=== PATIENT | female | born 1975 | race Caucasian/White ===

== ENCOUNTER 2021-11-28 20:12 | Emergency (ER) | payer OTHER ==
[~2021-11-28] VITALS: Ht 167.6 cm; Wt 99.3 kg
[2021-11-28 20:24] VITALS: BP 146/86
[2021-11-28] MEDS ORDERED: HYDROcodone/APAP 5/325MG 1 TAB TABLET PO ONE (20:45)
--- NOTE | 2021-11-28 20:59 | PHYS DOC ---
Past History Additional Past Medical Histor: interstitual cystitis, osteo arthritis (ROMEO YEAGER APRN) Past Surgical History: Appendectomy, Other Additional Past Surgical Histo: left ovary, sinus sx, turbinate (ROMEO YEAGER APRN) Alcohol Use: Occasionally (ROMEO YEAGER APRN) General Adult EDM: Chief Complaint: MECHANICAL FALL HPI: HPI: Patient is a 45-year-old female presents after a fall. Patient is reporting left knee pain and left wrist pain. Patient states that she did hit the left side of her head. Denies loss of consciousness, denies being on blood thinners. states that she has been acting appropriately all afternoon. Denies vomiting. Patient is unable to flex or extend wrist due to pain. Radial pulses are intact. Denies medical history. (ROMEO YEAGER APRN) Review of Systems: Review of Systems: ROS At least 10 ROS systems have been reviewed and are negative except as documented in the HPI. General: Negative except as outlined in HPI above. Skin: Negative except as outlined in HPI above. HEENT: Negative except as outlined in HPI above. Neck: Negative except as outlined in HPI above. Respiratory: Negative except as outlined in HPI above.. Cardiovascular: Negative except as outlined in HPI above. Abdomen: Negative except as outlined in HPI above. : Negative except as outlined in HPI above. Back/MSK: Negative except as outlined in HPI above. Neuro: Negative except as outlined in HPI above. Psych: Negative except as outlined in HPI above. (ROMEO YEAGER APRN) Current Medications: Current Meds: Current Medications Medications (Trade) Dose Ordered Sig/Derick Start Time Stop Time Status Last Admin Dose Admin Acetaminophen/ Hydrocodone Bitart (Lortab 5/325) 1 tab 1X ONCE 11/28/21 20:45 11/28/21 20:47 DC 11/28/21 20:52 1 TAB (ROMEO YEAGER APRN) Allergies: Allergies: Allergies Coded Allergies Type Severity Reaction Last Updated Verified Sulfa (Sulfonamide Antibiotics) Allergy Intermediate 11/28/21 Yes (ROMEO YEAGER APRN) Physical Exam: PE: Constitutional: Well developed, well nourished, no acute distress, non-toxic appearance. [] HENT: Normocephalic, atraumatic, bilateral external ears normal, oropharynx moist, no oral exudates, nose normal. [] Eyes: PERRLA, EOMI, conjunctiva normal, no discharge. [] Neck: Normal range of motion, no tenderness, supple, no stridor. [] Cardiovascular:Heart rate regular rhythm, no murmur [] Lungs & Thorax: Bilateral breath sounds clear to auscultation [] Abdomen: Bowel sounds normal, soft, no tenderness, no masses, no pulsatile masses. [] Skin: Warm, dry, no erythema, no rash. [] Back: No tenderness, no CVA tenderness. [] Extremities: Left wrist tenderness, unable to flex or extend wrist, mild swelling noted, radial pulses intact Neurologic: Alert and oriented X 3, normal motor function, normal sensory function, no focal deficits noted. [] Psychologic: Affect normal, judgement normal, mood normal. [] (ROMEO YEAGER APRN) Current Patient Data: Vital Signs: Vital Signs Date Time Temp Pulse Resp B/P (MAP) Pulse Ox O2 Delivery O2 Flow Rate FiO2 11/28/21 20:52 18 11/28/21 20:24 98.5 87 146/86 (106) 96 Room Air (ROMEO YEAGER APRN) EKG: EKG: [] (ROMEO YEAGER APRN) Radiology/Procedures: Radiology/Procedures: []Exam: Left wrist 3 views INDICATION: Fall TECHNIQUE: Frontal, lateral and oblique views the left wrist Comparisons: None FINDINGS: Bone mineralization is normal. No acute or healed fractures. Soft tissues are unremarkable. Joint spaces are well-maintained IMPRESSION: No acute osseous abnormality. Electronically signed by: Steven Gerber MD (11/28/2021 9:29 PM) [facility] (ORMEO YEAGER APRN) Heart Score: C/O Chest Pain: No Risk Factors: Risk Factors: DM, Current or recent (<one month) smoker, HTN, HLP, family history of CAD, obesity. Risk Scores: Score 0 - 3: 2.5% MACE over next 6 weeks - Discharge Home Score 4 - 6: 20.3% MACE over next 6 weeks - Admit for Clinical Observation Score 7 - 10: 72.7% MACE over next 6 weeks - Early Invasive Strategies (ROMEO YEAGER APRN) Course & Med Decision Making: Course & Med Decision Making Pertinent Labs and Imaging studies reviewed. (See chart for details) [] 45-year-old female presents after a fall. Patient is reporting left knee and left wrist pain. Work-up in ER consist of left wrist x-ray, left knee x-ray. Patient is unable to flex or extend the wrist due increase in pain. Patient is also reporting pain in the anatomic snuffbox and concerning for scaphoid fracture. Radial pulses are intact. Pain treated while in the emergency room. Wrist x-ray was unremarkable. Due to pain in the anatomic snuffbox and going to still place a thumb spica splint and have patient follow-up with Ortho. Advised patient to take ibuprofen and Tylenol at home. Sending patient home with a starter pack for pain medication and prescription for medication at home until she can follow-up. Patient given follow-up contact information for orthopedics. Patient verbalizes understanding of discharge instructions. Discussed return precautions. (ROMEO YEAGER APRN) Dragon Disclaimer: Marley Disclaimer: This electronic medical record was generated, in whole or in part, using a voice recognition dictation system. (ROMEO YEAGER APRN) Departure Departure: Impression: Primary Impression: Fall Qualified Codes: W19.XXXA - Unspecified fall, initial encounter Disposition: HOME / SELF CARE / HOMELESS Condition: STABLE Referrals: VU MCGUIRE (PCP) Patient Instructions: Fall Prevention and Home Safety, [id number] Additional Instructions: You are seen in the emergency room after a fall. X-ray was unremarkable. Due to where your pain is located we have placed a splint on your left wrist. I would like you to call orthopedic and make a appointment tomorrow for follow-up. Ibuprofen and Tylenol at home. I am also sending you home with pain medication and a prescription until you can follow-up. Please return to the emergency room if you have worsening symptoms or concerns such as uncontrollable vomiting, altered mental status. EMERGENCY DEPARTMENT GENERAL DISCHARGE INSTRUCTIONS Thank you for coming to [facility] (ED) today and trusting us with you care. We trust that you had a positivie experience in our Emergency Department. If you wish to speak to the department management, you may call the director at [phone]. YOUR FOLLOW UP INSTRUCTIONS ARE FOLLOWS: 1. Do you have a private Doctor? If you do not have a private doctor, please ask for a resource list of physicians or clinics that may be able to assist you with follow up care. 2. The Emergency Physician has interpreted your x-rays. The X-Ray specialist will also review them. If there is a change in the findings, you will be notified in 48 hours when at all possible. 3. A lab test or culture has been done, your results will be reviewed and you will be notified if you need a change in treatment. ADDITIONAL INSTRUCTIONS AND INFORMATION: 1. Your care today has been supervised by a physician who is specially trained in emergency care. Many problems require more than one evaluation for a complete diagnosis and treatment. We recommend that you schedule your follow up appointment as recommended to ensure complete treatment of you illness or injury. If you are unable to obtain follow up care and continue to have a problem, or if your condition worsens, we recommend that you return to the ED. 2. We are not able to safely determine your condition over the phone nor are we able to give sound medical advice over the phone. For these safety reasons, if you call for medical advice we will ask you to come to the ED for further evaluation. 3. If you have any questions regarding these discharge instructions please call the ED at [phone]. SAFETY INFORMATION: In the interest of safety, wellness, and injury prevention; we encourage you to wear your sealbelt, if you smoke; quite smoking, and we encourage family to use a protective helmet for bicycling and other sporting events that present an increased risk for head injury. IF YOUR SYMPTOMS WORSEN OR NEW SYMPTOMS DEVELOP, OR YOU HAVE CONCERNS ABOUT YOUR CONDITION; OR IF YOUR CONDITION WORSENS WHILE YOU ARE WAITING FOR YOUR FOLLOW UP APPOIN TMENT; EITHER CONTACT YOUR PRIMARY CARE DOCTOR, THE PHYSICIAN WHOSE NAME AND NUMBER YOU WERE GIVEN, OR RETURN TO THE ED IMMEDIATELY. Scripts Hydrocodone Bit/Acetaminophen (HYDROCODONE-APAP 5-325 ) 1 Each Tablet 0.5-1 TAB PO PRN Q6HRS PRN for PAIN for 3 Days, #12 TAB 0 Refills Prov: YEAGERDIANNAROMEO COSMETIC SURGEON 11/28/21 Attending Signature Attending Signature I have participated in the care of this patient and I have reviewed and agree with all pertinent clinical information above including history, exam, and recommendations. (CARIDAD SANDHU MD) Dragon Disclaimer This chart was dictated in whole or in part using Voice Recognition software in a busy, high-work load, and often noisy Emergency Department environment. It may contain unintended and wholly unrecognized errors or omissions. (CARIDAD SANDHU MD) ROMEO YEAGER APRN Nov 28, 2021 20:59 CARIDAD SANDHU MD Dec 03, 2021 20:02
--- NOTE | 2021-11-28 21:31 | RAD ---
Exam: Left wrist 3 views INDICATION: Fall TECHNIQUE: Frontal, lateral and oblique views the left wrist Comparisons: None FINDINGS: Bone mineralization is normal. No acute or healed fractures. Soft tissues are unremarkable. Joint spa gamaliel are well-maintained IMPRESSION: No acute osseous abnormality. Electronically signed by: Steven Gerber MD (11/28/2021 9:29 PM) [facility]
--- NOTE | 2021-11-28 21:32 | RAD ---
Exam: Left knee 3 views INDICATION: Fall TECHNIQUE: Frontal, lateral oblique views of the left knee Comparisons: None FINDINGS: Bone mineralization is normal. No acute or healed fractures. Soft tissues are unremarkable. Joint spa gamaliel are well-maintained IMPRESSION: No acute osseous abnormality. Electronically signed by: Steven Gerber MD (11/28/2021 9:29 PM) [facility]
[2021-11-28] MEDS ORDERED: HYDR-2155 PO (22:07)
[2021-11-28] MEDS ORDERED: ACETAMINOPHEN/CODEINE 300/30MG 4TABLET STARTPACK. PO ONE (22:15)
== END 2021-11-28 22:40 | disposition home or self-care (01) ==
LOC: ER 20:12
DX: M25.562 Pain in left knee (principal); M25.532 Pain in left wrist; Z88.2 Allergy status to sulfonamides; W18.39XA Other fall on same level, initial encounter; Y93.89 Activity, other specified; Y92.89 Other specified places as the place of occurrence of the external cause; Y99.8 Other external cause status
CPT/HCPCS: 29125; 73110; 73562; 99284